=== PATIENT | female | born 2000 ===

== ENCOUNTER 2018-10-10 12:27 | Emergency (ER) | payer MEDICAID, OTHER ==
[2018-10-10 12:37] VITALS: RESP 18; O2SAT 100
[2018-10-10 13:46] LABS: SQUAMOUS EPITHIAL < 1 /hpf (0-5); URINE BILIRUBIN NEGATIVE (NEGATIVE); URINE BLOOD 1+ (NEGATIVE); URINE CLARITY Clear (Clear); URINE COLOR Yellow (YELLOW); URINE GLUCOSE (UA) NORMAL (Normal); URINE LEUKOCYTE ESTERASE NEG Leu/uL (Negative); URINE PROTEIN NEGATIVE (NEGATIVE); URINE UROBILINOGEN NORMAL mg/dL (0.2-1.0)
[2018-10-10 13:46] LABS: BASO % 0.6 % (0.0-2.0); EOS # 0.1 K/uL (0.0-0.7); EOS % 1.3 % (0.0-4.0); HEMOGLOBIN 12.5 g/dL (11.0-16.0); LYMPH # 2.3 K/uL (1.0-4.3); LYMPH % 35.6 % (20.0-40.0); MEAN CORPUSCULAR HEMOGLOBIN 24.8 pg (27.0-31.0); MEAN CORPUSCULAR HGB CONC 33.1 g/dL (33.0-37.0); MEAN PLATELET VOLUME 7.5 fL (7.2-11.7); MONO # 0.3 K/uL (0.0-0.8); MONO % 5.3 % (0.0-10.0); NEUT # 3.7 K/uL (1.8-7.0); NEUT % 57.2 % (50.0-75.0); NRBC % 0.1 % (0.0-2.0); RBC 5.04 Mil/uL (3.80-5.20); RED CELL DISTRIBUTION WIDTH 13.9 % (11.5-14.5); WHITE BLOOD COUNT 6.5 K/uL (4.8-10.8)
[2018-10-10 13:57] LABS: ALB/GLOB RATIO 1.3 (1.0-2.1); ALBUMIN 4.4 g/dL (3.5-5.0); ALT/SGPT 23 U/L (9-52); AST/SGOT 25 U/L (14-36); BLOOD UREA NITROGEN 6 mg/dL (7-17); GFR NON-AFRICAN AMERICAN > 60; LIPASE 73 U/L (23-300)
[2018-10-10 14:48] VITALS: BP 123/81; PULSE 81; TEMP 97.9
--- NOTE | 2018-10-10 14:49 | C.PDOC ---
History Of Present Illness 18 y/o female presents to the ER complaining of vaginal bleeding. Patient states that she had 1 episode of vaginal bleeding, she felt a "gush of blood rushing out" Patient reports that her LMP was 2 weeks ago. Currently, patient denies having vaginal bleeding, vaginal discharge, and abdominal pain. Time Seen by Provider: 10/10/18 13:08 Chief Complaint (Nursing): Female Genitourinary History Per: Patient History/Exam Limitations: no limitations Onset/Duration Of Symptoms: Days Current Symptoms Are (Timing): Gone Severity: Moderate Past Medical History Reviewed: Historical Data, Nursing Documentation, Vital Signs Vital Signs: Last Vital Signs Temp 98.4 F 10/10/18 12:34 Pulse 77 10/10/18 12:34 Resp 18 10/10/18 12:34 BP 139/97 H 10/10/18 12:34 Pulse Ox 100 10/10/18 12:34 - Medical History PMH: No Chronic Diseases Surgical History: Appendectomy (@ age 11) Family History: States: No Known Family Hx - Social History Hx Tobacco Use: No Hx Alcohol Use: No Hx Substance Use: No - Immunization History Hx Tetanus Toxoid Vaccination: No Hx Influenza Vaccination: No Hx Pneumococcal Vaccination: No Review Of Systems Except As Marked, All Systems Reviewed And Found Negative. Constitutional: Negative for: Fever, Chills Gastrointestinal: Negative for: Nausea, Vomiting, Abdominal Pain Genitourinary: Positive for: Vaginal Bleeding (currently resolved). Negative for: Vaginal Discharge Physical Exam - Physical Exam Appears: Non-toxic, No Acute Distress Skin: Normal Color, Warm, Dry Head: Atraumatic, Normacephalic Eye(s): bilateral: Normal Inspection Nose: Normal Oral Mucosa: Moist Neck: Supple Chest: Symmetrical Cardiovascular: Rhythm Regular Respiratory: Normal Breath Sounds, No Rales, No Rhonchi, No Wheezing Gastrointestinal/Abdominal: Soft, No Tenderness, No Guarding, No Rebound Pelvic: Vaginal Bleeding (mild vaginal bleeding), No Vaginal Discharge, No Cervical Motion Tenderness, No Cervix Open, No Adnexal Tenderness, No Tender Uterus, Other (normal external labia, no lacerations, exam performed by female ENRRIQUE Brown) Neurological/Psych: Oriented x3, Normal Speech ED Course And Treatment - Laboratory Results Result Diagrams: 10/10/18 13:39 10/10/18 13:39 O2 Sat by Pulse Oximetry: 100 (RA) Pulse Ox Interpretation: Normal Medical Decision Making Medical Decision Making: Assessment: Dysfunctional Uterine Bleeding Plan: --Labs --UA Disposition Counseled Patient/Family Regarding: Studies Performed, Diagnosis, Need For Followup - Disposition Referrals: Aimee Sharma DO [Staff Provider] - Disposition: HOME/ ROUTINE Disposition Time: 14:48 Condition: STABLE Additional Instructions: follow up with clerk guide within 2 days call to make an appointment return to ER if symptoms worsens or progress Instructions: Absent or Irregular Periods Forms: [facility] (I[place]ic), General Discharge Instructions - Clinical Impression Clinical Impression: DUB (dysfunctional uterine bleeding) - Scribe Statement The provider has reviewed the documentation as recorded by the Yaritzaibe Belgica Hitchcock Provider Attestation: All medical record entries made by the Yaritzaibe were at my direction and personally dictated by me. I have reviewed the chart and agree that the record accurately reflects my personal performance of the history, physical exam, medical decision making, and the department course for this patient. I have also personally directed, reviewed, and agree with the discharge instructions and disposition.
== END 2018-10-10 14:54 | disposition home or self-care (01) ==
LOC: C.ER 12:27
DX: N93.8 Other specified abnormal uterine and vaginal bleeding (principal)